=== PATIENT | female | born 1940 | race African-American/Black ===

== ENCOUNTER 2018-04-27 10:06 | Outpatient (CLI) | payer MEDICARE, OTHER ==
--- NOTE | 2018-04-27 14:22 | MRI ---
MRI LUMBAR SPINE WITHOUT CONTRAST: 04/27/2018 HISTORY: Chronic back pain, radiating into both legs, left greater than right. Bilateral lower extremity radi culopathy. COMPARISON: None. TECHNIQUE: Multiplanar, multisequence MR imaging of the lumbar spine is provided without contrast. FINDINGS: The sagittal STIR imaging demonstrates no focal area of osseous marrow edema. Assuming five lumbar t ype vertebral bodies, the conus medullaris terminates at the T12-L1 level. There is anterolisthesis of L2 on L3, measuring approximately 5 mm. T12-L1: Bilateral facet hypertrophy/hypertrophy of the ligamentum flavum, right greater than left. Mild disk space narrowing and disk bulge. No significant central canal or neural foraminal stenosis. L1-L2: Bilateral facet hypertrophy and hypertrophy of the ligamentum flavum, right greater than left . Mild disk bulge. No significant central canal stenosis. Mild left and moderate right neural fora harsha stenosis. L2-L3: Prominent bilateral facet hypertrophy. Disk space narrowing, disk desiccation, and disk bulg e present with moderate central canal stenosis. Moderate right and mild left neural foraminal stenos is. L3-L4: Disk space narrowing, disk desiccation, and disk bulge present. Prominent bilateral facet hy pertrophy and hypertrophy of the ligamentum flavum. Moderate-severe central canal stenosis. Moderat e-severe right neural foraminal stenosis. Mild left neural foraminal stenosis. Vacuum disk present. L4-L5: Disk space narrowing, disk desiccation, and disk bulge. Bilateral facet hypertrophy. No shaka tral canal stenosis. Vacuum disk present. No significant right neural foraminal stenosis. Severe l eft neural foraminal stenosis. L5-S1: Disk space narrowing, disk desiccation, and vacuum disk present. Bilateral facet hypertrophy . No significant central canal stenosis. Severe left and moderate right neural foraminal stenosis. Regional bone marrow signal intensity is grossly unremarkable. Imaged retroperitoneal structures ar e grossly unremarkable as well. 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 POS: OFF
== END 2018-04-27 10:07 | disposition home or self-care (01) ==
LOC: SCSMRI 10:06
PROVIDERS: ATTEND Anesthesiology Pain Medicine
DX: M48.062 Spinal stenosis, lumbar region with neurogenic claudication (principal); M47.816 Spondylosis without myelopathy or radiculopathy, lumbar region
CPT/HCPCS: 72148

== ENCOUNTER 2021-10-25 16:30 | Inpatient (IN) | payer MEDICARE, OTHER ==
[2021-10-25] MEDS ORDERED: traMADol HCl 50 MG TAB PO PRN (17:47)
[2021-10-25] MEDS ORDERED: Morphine 2 MG/ML VIAL SLOW IVP PRN (17:48)
[2021-10-25] MEDS ORDERED: Dextrose 5% in Water 1,000 ML IV PRN (17:51)
[2021-10-25] MEDS ORDERED: Dextrose 50% Abboject 50 ML SYRINGE SLOW IVP PRN (17:51)
[2021-10-25] MEDS ORDERED: Ibuprofen 600 MG TAB PO SCH (18:00)
[2021-10-25] MEDS ORDERED: Morphine 4 MG/ML VIAL SLOW IVP SCH (18:00)
[2021-10-25] MEDS ORDERED: traMADol HCl 50 MG TAB PO SCH (18:00)
[2021-10-25] MEDS: Acetaminophen 500 MG TAB PO SCH ×2 (18:16→23:14)
[2021-10-25 18:30] VITALS: BMI 25.7
[2021-10-25] MEDS ORDERED: Gabapentin 100 MG CAP PO SCH (21:00)
[2021-10-25] MEDS: Famotidine 20 MG TAB PO SCH (21:24)
[2021-10-25] MEDS: Ibuprofen 200 MG TAB PO SCH (21:25)
[2021-10-25] MEDS ORDERED: Gabapentin 300 MG CAP PO SCH (21:30)
[2021-10-25] MEDS ORDERED: Lactated Ringer's 1,000 ML IV SCH (23:59)
[2021-10-26] MEDS: Ibuprofen 200 MG TAB PO SCH ×4 (03:15→20:06)
[2021-10-26 05:42] LABS: #Monocytes 0.6 thou/uL (0.11-0.59); #Neutrophils 3.2 thou/uL (1.40-6.50); %Eosinophils 0.7 % (0.0-10.0); %Lymphocytes 21.4 % (21.0-51.0); %Monocytes 11.8 % (0.0-10.0); %Neutrophils 66.2 % (42.0-75.0); Mean Corpuscular HGB CONC 31.7 g/dL (32.0-36.0); Mean Corpuscular Hemoglobin 30.5 pg (27.0-31.0); Mean Corpuscular Volume 96.1 fL (78.0-98.0); Mean Platelet Volume 7.8 fL (7.4-10.4); Platelet Count 147 thou/uL (130-400); Red Blood Cell (RBC) Count 2.95 mill/uL (4.20-5.40); White Blood Cell (WBC) Count 4.9 thou/uL (4.8-10.8)
[2021-10-26] MEDS: Acetaminophen 500 MG TAB PO SCH ×4 (05:51→21:02)
[2021-10-26 06:07] LABS: Anion Gap 10 mmol/L (10-20); BUN (Urea Nitrogen) 21 mg/dL (9.8-20.1); Calc. Creatinine Clearance 62 mL/min (70-130); Calcium 8.7 mg/dL (7.8-10.44); Carbon Dioxide 27 mmol/L (23-31); Chloride 108 mmol/L (98-107); Glucose 103 mg/dL (83-110); Magnesium 2.4 mg/dL (1.6-2.6); Phosphorus 3.8 mg/dL (2.3-4.7); Potassium 3.5 mmol/L (3.5-5.1); Sodium 141 mmol/L (136-145)
[2021-10-26] MEDS: Famotidine 20 MG TAB PO SCH ×2 (08:34→20:07)
[2021-10-26] MEDS: Losartan 25 MG TAB PO SCH (08:34)
[2021-10-26] MEDS: Gabapentin 300 MG CAP PO SCH ×3 (08:35→20:07)
[2021-10-26] MEDS: tiZANidine HCl 4 MG TAB PO PRN ×2 (09:37→21:38)
[2021-10-26] MEDS: Ferrous Sulfate 325 MG TAB PO SCH (17:04)
[2021-10-26] MEDS: Senokot S 8.6-50 MG TAB PO SCH (20:07)
[2021-10-26] MEDS: Ascorbic Acid 500 mg Chewable Tablet PO SCH (20:07)
[2021-10-26] MEDS ORDERED: Ketorolac Tromethamine 30 MG/ML VIAL IVP SCH (22:45)
[2021-10-27] MEDS: Acetaminophen 500 MG TAB PO SCH (03:28)
[2021-10-27] MEDS: Ibuprofen 200 MG TAB PO SCH ×4 (03:29→21:23)
[2021-10-27 06:05] LABS: #Lymphocytes 1.3 thou/uL (1.20-3.40); #Monocytes 0.4 thou/uL (0.11-0.59); #Neutrophils 2.5 thou/uL (1.40-6.50); %Basophils 0.6 % (0.0-1.0); %Eosinophils 0.9 % (0.0-10.0); %Lymphocytes 30.9 % (21.0-51.0); %Monocytes 9.8 % (0.0-10.0); %Neutrophils 57.8 % (42.0-75.0); Mean Corpuscular HGB CONC 31.4 g/dL (32.0-36.0); Mean Corpuscular Volume 98.8 fL (78.0-98.0); Mean Platelet Volume 9.3 fL (7.4-10.4); Platelet Count 138 thou/uL (130-400); RBC Distribution Width 12.4 % (11.5-14.5); Red Blood Cell (RBC) Count 2.58 mill/uL (4.20-5.40); White Blood Cell (WBC) Count 4.3 thou/uL (4.8-10.8)
[2021-10-27] MEDS ORDERED: Lactated Ringer's 1,000 ML IV SCH (07:45)
[2021-10-27] MEDS ORDERED: Potassium Chloride 20 MEQ in Premix Bag 1 BAG IVPB SCH (09:00)
[2021-10-27] MEDS ORDERED: Promethazine HCl 6.25 MG/5 ML Syrup PO PRN (09:20)
[2021-10-27] MEDS ORDERED: Potassium Chloride 10 MEQ in Premix Bag 1 BAG IVPB SCH (10:00)
[2021-10-27] MEDS ORDERED: Magnesium Citrate 300 ML BOT PO SCH (10:00)
[2021-10-27] MEDS: Ferrous Sulfate 325 MG TAB PO SCH ×2 (10:10→16:30)
[2021-10-27] MEDS: Enoxaparin Sodium 40 MG/0.4 ML SYRINGE SC SCH (10:13)
[2021-10-27] MEDS: Gabapentin 300 MG CAP PO SCH ×3 (10:13→21:24)
[2021-10-27] MEDS: Ascorbic Acid 500 mg Chewable Tablet PO SCH ×2 (10:14→21:23)
[2021-10-27] MEDS: Famotidine 20 MG TAB PO SCH ×2 (10:15→21:23)
[2021-10-27] MEDS: Polyethylene Glycol 3350 17 GM Packet PO SCH (10:24)
[2021-10-27] MEDS: Senokot S 8.6-50 MG TAB PO SCH ×2 (10:24→21:25)
[2021-10-27] MEDS ORDERED: Hydrocortisone Sod Succ/PF 100 mg/2 ml Vial IVP SCH (11:45)
[2021-10-27] MEDS: Acetaminophen/Codeine 30-300mg Tablet PO SCH ×4 (12:42→23:40)
[2021-10-27] MEDS: Hydrocortisone Sod Succ/PF 100 mg/2 ml Vial IVP SCH ×2 (16:31→21:25)
[2021-10-27] MEDS: Ondansetron PF 4 MG/2 ML Vial IVP PRN (23:39)
[2021-10-28] MEDS: Ibuprofen 200 MG TAB PO SCH ×2 (03:54→08:33)
[2021-10-28] MEDS: Acetaminophen/Codeine 30-300mg Tablet PO SCH ×2 (05:37→13:13)
[2021-10-28 05:41] LABS: #Lymphocytes 0.8 thou/uL (1.20-3.40); #Monocytes 0.4 thou/uL (0.11-0.59); #Neutrophils 3.8 thou/uL (1.40-6.50); %Basophils 0.1 % (0.0-1.0); %Eosinophils 0.1 % (0.0-10.0); %Lymphocytes 15.6 % (21.0-51.0); %Monocytes 7.6 % (0.0-10.0); %Neutrophils 76.6 % (42.0-75.0); Hemoglobin 8.7 g/dL (12.0-16.0); Mean Corpuscular HGB CONC 31.8 g/dL (32.0-36.0); Mean Corpuscular Hemoglobin 30.7 pg (27.0-31.0); Mean Corpuscular Volume 96.7 fL (78.0-98.0); Mean Platelet Volume 7.8 fL (7.4-10.4); Platelet Count 173 thou/uL (130-400); Red Blood Cell (RBC) Count 2.84 mill/uL (4.20-5.40)
[2021-10-28] MEDS: Ondansetron PF 4 MG/2 ML Vial IVP PRN ×2 (06:30→15:26)
[2021-10-28] MEDS: Enoxaparin Sodium 40 MG/0.4 ML SYRINGE SC SCH (08:32)
[2021-10-28] MEDS: Famotidine 20 MG TAB PO SCH (08:32)
[2021-10-28] MEDS: Polyethylene Glycol 3350 17 GM Packet PO SCH (08:32)
[2021-10-28] MEDS: Ascorbic Acid 500 mg Chewable Tablet PO SCH (08:33)
[2021-10-28] MEDS: Senokot S 8.6-50 MG TAB PO SCH (08:33)
[2021-10-28] MEDS: Losartan 25 MG TAB PO SCH (08:33)
[2021-10-28] MEDS: Ferrous Sulfate 325 MG TAB PO SCH (08:35)
[2021-10-28] MEDS: Gabapentin 300 MG CAP PO SCH (08:35)
[2021-10-28 15:49] VITALS: BP 127/77; TEMP 97.9
== END 2021-10-28 16:55 | disposition home health service (06) | DRG 534 ==
LOC: SURG B 16:30
PROVIDERS: ADMIT Student in an Organized Health Care Education/Training Program; ATTEND Specialist
DX: S72.402A Unspecified fracture of lower end of left femur, initial encounter for closed fracture (principal); E27.40 Unspecified adrenocortical insufficiency; Z20.822 Contact with and (suspected) exposure to COVID-19; J45.909 Unspecified asthma, uncomplicated; M06.9 Rheumatoid arthritis, unspecified; I10 Essential (primary) hypertension; B18.2 Chronic viral hepatitis C; M19.90 Unspecified osteoarthritis, unspecified site; W19.XXXA Unspecified fall, initial encounter; D64.9 Anemia, unspecified; Z88.5 Allergy status to narcotic agent; Z88.2 Allergy status to sulfonamides; Z91.040 Latex allergy status
CPT/HCPCS: 36415; 36416; 80048; 82533; 82565; 83735; 84100; 85025; J1650; J1720; J1885; J2270; J2405; J3480; J7120